=== PATIENT | female | born 2000 | race Caucasian/White ===

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

== ENCOUNTER → 2022-01-22 20:23 | Observation (INO) ==
[2022-01-22 20:00] LABS: Bacteria,Urine Few per hpf (None-Few); Bilirubin,Urine Negative (Negative); Blood,Urine Negative (Negative); Budding Yeast,Urine Few per hpf (None Seen); Clarity,Urine Turbid (Clear); Color,Urine Light-Yellow (Yellow); Glucose,Urine (UA) Normal (Normal); Ketones,Urine Negative (Negative); Leukocyte Esterase,Urine Moderate (Negative); Mucus,Urine Few per lpf (None-Few); Nitrite,Urine Negative (Negative); Protein,Urine Negative (Neg-Trace); RBC,Urine 0-3 per hpf (0-3); Specific Gravity,Urine 1.011 (1.010-1.025); Squamous Epithelial Cell,Urine Few per hpf (None-Few); Urobilinogen,Urine Normal (Normal)
[~2022-01-22 20:23] MED LIST: EPHEDrine 50 MG/ML VIAL IVP PRN; Epidural Premix (fent/bupiv) 110 ML EP SCH; Fluconazole 150 MG TABLET PO ONE
== END | disposition home or self-care (01) ==
LOC: 1NENULAB
PROVIDERS: ADMIT Obstetrics & Gynecology; ATTEND Obstetrics & Gynecology

== ENCOUNTER → 2022-02-13 01:15 | Observation (INO) | END | disposition home or self-care (01) | LOC: 1NENULAB | PROVIDERS: ADMIT Student in an Organized Health Care Education/Training Program; ATTEND Student in an Organized Health Care Education/Training Program ==

== ENCOUNTER 2022-02-13 10:08 | Inpatient (IN) ==
[2022-02-13] MEDS ORDERED: Ringers Solution, Lactated 1,000 ML IVC ONE (10:18)
[2022-02-13] MEDS ORDERED: Metoclopramide 10 MG/2 ML VIAL IVP ONE (10:18)
[2022-02-13] MEDS ORDERED: Famotidine 20 MG/2 ML VIAL IVP ONE (10:18)
[2022-02-13] MEDS ORDERED: CeFAZolin 2,000 MG/120 ML BAG IVPB ONE (10:18)
[2022-02-13 10:43] LABS: Basophils # 0.1 K/mcL (0.0-0.2); Basophils % 0.6 %; Eosinophils # 0.2 K/mcL (0.0-0.6); Eosinophils % 1.5 %; Hematocrit 32.1 % (35.3-44.9); Hemoglobin 10.6 g/dL (11.5-15.4); Immature Granulocytes % 1.1 % (0-4); Lymphocytes # 3.4 K/mcL (0.6-4.6); Mean Corpuscular Hemoglobin 27.8 pg (28.0-33.3); Mean Corpuscular Volume 84.3 fL (83.0-100.0); Mean Platelet Volume 11.6 fL (9.4-12.4); Monocytes # 0.8 K/mcL (0.0-1.3); Monocytes % 5.4 %; Neutrophils # 9.6 K/mcL (1.6-8.9); Platelet Count 344 K/mcL (140-400); Red Blood Count 3.81 M/mcL (3.82-4.97); Red Cell Distribution Width 13.6 % (11.5-14.5); Segmented Neutrophils % 67.4 %; White Blood Count 14.3 K/mcL (4.3-11.1)
[2022-02-13] MEDS ORDERED: Terbutaline 1 MG/ML VIAL SQ ONE (11:24)
[2022-02-13 11:26] LABS: Alanine Aminotransferase 7 Units/L (7-52); Aspartate Amino Transferase 13 Units/L (13-39); BUN/Creatinine Ratio 10 (6-26); Blood Urea Nitrogen 6 mg/dL (6-20); Lactate Dehydrogenase 177 Units/L (140-271); Uric Acid 7.7 mg/dL (2.3-7.6)
[2022-02-13] MEDS: Ringers Solution, Lactated 1,000 ML IVC SCH ×2 (11:48→16:09)
[2022-02-13] MEDS ORDERED: Ondansetron 4 MG/2 ML VIAL ONE (12:31)
[2022-02-13] MEDS ORDERED: EPHEDrine 50 MG/ML VIAL IVP PRN (13:10)
[2022-02-13] MEDS ORDERED: Azithromycin 500 MG in 0.9 % Sodium Chloride 250 ML IVPB PRN (13:14)
[2022-02-13] MEDS ORDERED: Metoclopramide 10 MG/2 ML VIAL IVP PRN (13:14)
[2022-02-13] MEDS ORDERED: Famotidine 20 MG/2 ML VIAL IVP PRN (13:14)
[2022-02-13] MEDS ORDERED: Naloxone 0.4 MG/ML INJ IVP PRN (13:14)
[2022-02-13] MEDS ORDERED: Ondansetron 4 MG/2 ML VIAL IVP PRN (13:14)
[2022-02-13] MEDS ORDERED: Oxytocin 30 UNIT/503 ML BAG IVC SCH (13:15)
[2022-02-13] MEDS ORDERED: Penicillin G Potassium 5,000,000 UNIT in 0.9 % Sodium Chloride Mini Bag 100 ML IVPB ONE (13:30)
[2022-02-13 14:23] LABS: Amphetamine Screen,Urine Negative ng/mL (Cutoff=1000); Barbiturate Screen,Urine Negative ng/mL (Cutoff=200); Benzodiazepines Screen,Urine Negative ng/mL (Cutoff=200); Cannabinoid Screen,Urine Negative ng/mL (Cutoff = 50); Cocaine Screen,Urine Negative ng/mL (Cutoff= 300); Creatinine,Urine 86 mg/dL; Opiate Screen,Urine Negative ng/mL (Cutoff=300); Phencyclidine Screen,Urine Negative ng/mL (Cutoff=25); Protein/Creatinine Ratio,Urine 0.17 mg/mg (0.00-0.20)
[2022-02-13] MEDS: Penicillin G Potassium 2,500,000 UNIT/105 ML MLS IVPB SCH ×2 (17:35→21:40)
[2022-02-14] MEDS: Ringers Solution, Lactated 1,000 ML IVC SCH (00:03)
[2022-02-14] MEDS: Epidural Premix (fent/bupiv) 110 ML EP SCH (00:03)
[2022-02-14] MEDS ORDERED: Lanolin 7 G OINT...G. TP PRN (00:27)
[2022-02-14] MEDS ORDERED: Benzocaine/Menthol 56 GM AEROSOL SPRAY TP PRN (00:27)
[2022-02-14] MEDS ORDERED: Oxytocin 30 UNIT/503 ML BAG IVC SCH (00:27)
[2022-02-14] MEDS ORDERED: Ondansetron ODT 4 MG TAB.RAPDIS SL PRN (00:27)
[2022-02-14] MEDS: Ibuprofen 600 MG TABLET PO SCH ×4 (01:14→20:30)
[2022-02-14] MEDS: Acetaminophen 325 MG TABLET PO SCH ×4 (01:14→20:30)
[2022-02-14 03:59] LABS: Basophils # 0.1 K/mcL (0.0-0.2); Basophils % 0.4 %; Eosinophils % 0.2 %; Hematocrit 30.2 % (35.3-44.9); Hemoglobin 9.6 g/dL (11.5-15.4); Immature Granulocytes % 0.6 % (0-4); Lymphocytes # 2.6 K/mcL (0.6-4.6); Lymphocytes % 14.4 %; Mean Corpuscular HGB Conc 31.8 g/dL (31.6-35.5); Mean Corpuscular Hemoglobin 27.1 pg (28.0-33.3); Mean Corpuscular Volume 85.3 fL (83.0-100.0); Mean Platelet Volume 11.9 fL (9.4-12.4); Monocytes # 0.9 K/mcL (0.0-1.3); Neutrophils # 14.1 K/mcL (1.6-8.9); Platelet Count 313 K/mcL (140-400); Red Blood Count 3.54 M/mcL (3.82-4.97); Red Cell Distribution Width 13.7 % (11.5-14.5); Segmented Neutrophils % 79.4 %; White Blood Count 17.7 K/mcL (4.3-11.1)
[2022-02-14] MEDS: Prenatal Vit/FA 1 EACH TABLET PO SCH (07:55)
[2022-02-14] MEDS ORDERED: Measles/Mumps/Rubella Vacc 0.5 ML VIAL SQ ONE (13:37)
[2022-02-15] MEDS: Acetaminophen 325 MG TABLET PO SCH ×2 (05:01→11:47)
[2022-02-15] MEDS: Ibuprofen 600 MG TABLET PO SCH ×2 (05:01→11:47)
[2022-02-15 08:14] VITALS: BP 133/79; PULSE 100; TEMP 97.6; O2SAT 100
[2022-02-15] MEDS: Prenatal Vit/FA 1 EACH TABLET PO SCH (08:18)
== END 2022-02-15 14:42 | disposition home or self-care (01) | DRG 560 ==
LOC: 1NENULAB 10:08 → 1NENUOBS 02-14 00:50
PROVIDERS: ADMIT Obstetrics & Gynecology; ATTEND Obstetrics & Gynecology